=== PATIENT | female | born 1955 | race African-American/Black ===

== ENCOUNTER 2016-08-18 07:15 | Emergency (ER) | payer OTHER ==
[~2016-08-18] VITALS: Ht 167.6 cm; Wt 55.3 kg
[~2016-08-18 07:15] MED LIST: CIPROFLOXACIN500 M1 PO; COLACE100 MG PO; DYAZIDE 37.5-21 EACH PO; FISH OIL 1,0001 EAC5 PO; FLAGYL500 MG PO; LEVSIN0.125 MG PO; MEDROL DOSPAK21 TAB PO; NORCO 5-325 TA1 EACH PO; PENTASA500 MG PO; PHENERGAN 25 MG25 M1 PO; POTASSIUM20 PO; PREDNISONE 10 M10 M1; PREDNISONE 10 M10 M1 PO; PREDNISONE 20 M20 M1 PO; PRILOSEC 20 MG20 MG PO; TESSALON PERLE100 MG PO; TRAMADOL 50 MG50 MG PO; ZOFRAN ODT4 MG PO; ZOFRAN ODT8 MG PO; ZOFRAN4 MG PO; ZPAK PO
[2016-08-18 07:52] LABS: ABSOLUTE NEUTROPHILS 3.1 thou/uL (1.4-8.2); BASOPHILS 0.6 % (0.0-2.0); EOSINOPHILS 0.2 % (0.0-3.0); HEMATOCRIT 42.2 % (37.0-47.0); HEMOGLOBIN 13.5 gm/dL (12.0-15.0); LYMPHOCYTES 18.5 % (24.0-44.0); MCH 25.6 pg (26.0-34.0); MONOCYTES 5.8 % (1.0-8.0); PLATELET COUNT 258 thou/uL (150-400); POLYS 74.9 % (36.0-66.0); RBC 5.28 mil/uL (4.20-5.00); RDW 15.8 % (10.5-14.5); WBC 4.1 thou/uL (4.0-11.0)
[2016-08-18 07:54] LABS: MANUAL DIFF NO; URINE BILIRUBIN NEGATIVE (Negative); URINE BLOOD NEGATIVE (Negative); URINE COLOR YELLOW; URINE GLUCOSE-RANDOM* NEGATIVE (Negative); URINE KETONES NEGATIVE (Negative); URINE LEUKOCYTES-REFLEX TRACE (Negative); URINE PROTEIN (DIPSTICK) NEGATIVE (Negative); URINE UROBILINOGEN 0.2 E.U./dl (0.2-1.0)
[2016-08-18 07:57] LABS: ANION GAP 7 mmol/L (7-16); BUN 7 mg/dL (7-18); CALCIUM 9.6 mg/dL (8.5-10.1); CHLORIDE 103 mmol/L (98-107); CO2 27 mmol/L (21-32); GLUCOSE 108 mg/dL (74-106); SODIUM 137 mmol/L (136-145)
[2016-08-18 08:01] LABS: ALKALINE PHOSPHATASE 59 U/L (46-116); DIRECT BILIRUBIN < 0.1 mg/dL (<0.1-0.3); SGOT 26 U/L (15-37); SGPT 19 U/L (30-65); TOTAL BILIRUBIN 0.4 mg/dL (<0.1-1.0); TOTAL PROTEIN 8.1 g/dL (6.4-8.2)
[2016-08-18] MEDS ORDERED: ZOFRAN ODT4 MG PO (11:36)
[2016-08-18] MEDS ORDERED: LEVSIN0.125 MG PO (11:36)
[2016-08-18] MEDS ORDERED: NORCO 5-325 TA1 EACH PO (11:36)
== END 2016-08-18 12:00 | disposition home or self-care (01) ==
LOC: ER 07:15
PROVIDERS: Emergency Medicine
DX: R10.84 Generalized abdominal pain (principal); R11.2 Nausea with vomiting, unspecified; K50.90 Crohn's disease, unspecified, without complications; I10 Essential (primary) hypertension